=== PATIENT | female | born 1995 | race Hispanic/Latino ===

== ENCOUNTER 2018-08-13 16:07 | Observation (INO) | payer OTHER ==
[~2018-08-13] VITALS: Ht 157.5 cm; Wt 80.9 kg
[2018-08-14] MEDS ORDERED: ELIQUIS5 MG PO ×2 (10:15→12:50)
[2018-08-14] MEDS ORDERED: XARELTO15 MG PO (11:12)
[2018-08-14] MEDS ORDERED: XARELTO20 MG PO (11:12)
== END 2018-08-14 13:10 | disposition home or self-care (01) ==
LOC: ED 16:07 → MS 16:09
PROVIDERS: ADMIT Internal Medicine
DX: I26.99 Other pulmonary embolism without acute cor pulmonale (principal); N83.202 Unspecified ovarian cyst, left side; E87.6 Hypokalemia; Z23 Encounter for immunization
CPT/HCPCS: 36415; 71260; 74177; 76705; 76830; 76856; 80053; 81001; 81240; 81241; 83690; 83735; 83880; 84484; 84703; 85025; 85379; 85610; 85730; 86147; 87491; 87591; 94762; 96372; 96374; 96375; 99285-25; G0008; G0378; J1650; J1885; J2405; Q9967

== ENCOUNTER 2023-04-20 11:01 | Inpatient (IN) | payer BC, OTHER ==
[~2023-04-20] VITALS: Ht 160 cm; Wt 97.5 kg
--- OUTSIDE RECORDS SUMMARY | ~2023-04-20 | XMS | Continuity of Care Document ---
Demographics + + + | Address | [address] | | | [place] [address] | + + + | Preferred Language | Unknown | + + + | Marital Status | | + + + | Scientologist Affiliation | Unknown | + + + | Race | Unknown | + + + | Ethnic Group | or | + + + Author + + + | Author | [facility] | + + + | Organization | [facility] | + + + | Address | [address] | | | [place] [address] | + + + | Phone | | + + + Care Team Providers + + + + | Care Market Sales Manager Name | Role | Phone | + + + + Unavailable | Unavailable | + + + + Allergies No information. Encounters No information. Functional Status No information. Immunizations No information. Medications No information. Problems + + + + | date | description | facility | + + + + | 2023-01-29 22:23 | OTH RELATED | [facility] | | | CONDITIONS, SECOND | | | | [facility] | | + + + + | 2023-01-29 22:23 | PALPITATIONS | [facility] | + + + + | 2023-01-29 22:23 | WEEKS OF GESTATION OF | [facility] | | | NOT SPECIFIED | | + + + + | 2023-01-29 22:23 | OTHER CORRECTION (CURRENT) | [facility] | | | DRUG THERAPY | | + + + + | 2023-02-26 20:30 | SUPERVISION OF HIGH RISK | [facility] | | | , UNSP | | + + + + | 2023-02-26 20:30 | UNSPECIFIED MATERNAL | [facility] | | | HYPERTENSION, SECON | | + + + + | 2023-02-26 20:39 | SUPERVISION OF HIGH RISK | [facility] | | | , UNSP | | + + + + | 2023-02-26 20:39 | SUPERVISION OF HIGH RISK | [facility] | | | , UNSP, THIRD | | | | [facility] | | + + + + | 2023-02-26 20:39 | UNSPECIFIED MATERNAL | [facility] | | | HYPERTENSION, SECON | | + + + + | 2023-02-26 20:39 | UNSPECIFIED MATERNAL | [facility] | | | HYPERTENSION, THIRD | | | | TRIMESTER | | + + + + | 2023-02-26 20:39 | UTERINE SIZE-DATE | [facility] | | | DISCREPANCY, THIRD | | | | TRIMESTER | | + + + + | 2023-02-26 20:39 | MATERNAL CARE FOR EXCESS | [facility] | | | GROWTH, THIRD TRIME | | + + + + | 2023-02-26 20:39 | 33 WEEKS GESTATION OF | [facility] | | | | | + + + + | 2023-03-05 19:30 | SUPERVISION OF HIGH RISK | [facility] | | | , UNSP | | + + + + | 2023-03-05 19:30 | UNSPECIFIED MATERNAL | [facility] | | | HYPERTENSION, SECON | | + + + + | 2023-03-06 19:36 | SUPERVISION OF HIGH RISK | [facility] | | | , UNSP | | + + + + | 2023-03-06 19:36 | SUPERVISION OF HIGH RISK | [facility] | | | , UNSP, THIRD | | | | TRIMESTER | | + + + + | 2023-03-06 19:36 | UNSPECIFIED MATERNAL | [facility] | | | HYPERTENSION, SECON | | + + + + | 2023-03-06 19:36 | UNSPECIFIED MATERNAL | [facility] | | | HYPERTENSION, THIRD | | | | TRIMESTER | | + + + + | 2023-03-06 19:36 | 33 WEEKS GESTATION OF | [facility] | | | | | + + + + | 2023-03-17 13:05 | GIGIR SMITA ROSENTHAL OF | [facility] | | | NORMAL PREG, UNSP, THIRD | | | | [facility]IME[facility] | | + + + + | 2023-03-17 13:05 | 32 WEEKS GESTATION OF | [facility] | | | | | + + + + | 2023-03-17 13:05 | 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 Results/Labs No information. Social History +--------+ + + | date | description | facility | +--------+ + + Vital Signs No information."
[~2023-04-20 11:01] MED LIST: ELIQUIS5 MG PO; LEVOXYL25 MCG PO; XARELTO15 MG PO; XARELTO20 MG PO
[2023-04-20 13:00] LABS: HEMATOCRIT 39.7 % (35.0-50.0); HEMOGLOBIN 13.1 g/dL (12.0-18.0); MCH 26.3 (27-36); MCV 79.6 fl (81-99); RBC 4.98 M/ul (4.3-5.7); RDW 16.3 (10.5-15.0)
[2023-04-20 13:18] VITALS: BP 125/71
[2023-04-20 13:23] LABS: ANION GAP 16.6 (7-21); BUN/CREATININE RATIO 11.32 (6.0-28.6); CREATININE, SERUM 0.53 mg/dL (0.55-1.02); POTASSIUM 3.6 mmol/L (3.5-5.1)
[2023-04-20 13:37] LABS: ABO A; ANTIBODY SCREEN NEGATIVE; RH POSITIVE
[2023-04-20 14:12] LABS: AMPHETAMINES, UR NEGATIVE (NEGATIVE); BARBITURATES, UR NEGATIVE (NEGATIVE); BENZODIAZEPINES, UR NEGATIVE (NEGATIVE); BUPRENORPHINE,UR NEGATIVE (NEGATIVE); COCAINE, UR NEGATIVE (NEGATIVE); MARIJUANA (THC), UR NEGATIVE (NEGATIVE); MDMA, UR NEGATIVE (NEGATIVE); METHADONE, UR NEGATIVE (NEGATIVE); METHAMPHETAMINE, UR NEGATIVE (NEGATIVE); OPIATES, UR NEGATIVE (NEGATIVE); OXYCODONE, UR NEGATIVE (NEGATIVE); PHENCYCLIDINE, UR NEGATIVE (NEGATIVE); TRICYCLIC ANTIDEPRESSANT, UR NEGATIVE (NEGATIVE)
--- NOTE | 2023-04-20 15:46 | PR ---
[facility] [address] [place], [place] [address] Signed Progress Notes IP Datetime Report Generated by CPN: 04/20/2023 15:46 PROGRESS NOTES: [id number] Impression: Normal Progression of Labor Procedures: Scalp Electrode Plan: Continue Present Management Informed Consent Obtain: Vaginal Delivery VITAL SIGNS: [id number] Vital Signs: Reviewed; Within Normal Limits EXAM: [id number] Dilatation: 10.0 Effacement: 100 Station: 0 MEMBRANES: [id number] Comments: S: Patient well. S/P epidural and FSE placement. Resting comfortably in bed. No concerns or complaints at this time. O: AFVSS A/P: Patient well. 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 Will continue to monitor. Will recheck in 1 hour and sooner as needed. FETUS A: [id number] Variability: Moderate 6-25bpm Accelerations: None Decelerations: None FHR Category: Category I Presentation: Vertex FETUS B: [id number] Signing Physician: Dario Bills MD Copies: ~ *Electronically Signed* 04/20/23 1546 DARIO BILLS MD PATIENT NAME: YANIQUE HERNANDEZ PROGRESS NOTE DATE OF : [birth year] PHYSICIAN: DARIO BILLS MD RPT #: [id number] REPORT IS CONFIDENTIAL AND NOT TO BE RELEASED WITHOUT AUTHORIZATION
--- NOTE | 2023-04-20 15:49 | NUR ---
RT COLLECTED RAPID COVID 19, RSV, AND FLU SWAB PER DR REQUEST USING IN HOUSE LAB WITH NO COMPLICATIONS AT THIS TIME.
[2023-04-20 16:30] LABS: INFLUENZA B NAA NEGATIVE (NEGATIVE); RESPIRATORY SYNCYTIAL VIR NAA NEGATIVE (NEGATIVE)
[2023-04-21 05:22] LABS: HEMATOCRIT 37.8 % (35.0-50.0); HEMOGLOBIN 12.2 g/dL (12.0-18.0); MCH 26.2 (27-36); MCHC 32.4 g/dl (30-36); RBC 4.67 M/ul (4.3-5.7); RDW 16.3 (10.5-15.0)
--- NOTE | 2023-04-21 07:33 | PR ---
[facility] [address] [facility] [facility] [place], [place] [address] Signed PP Progress Notes Datetime Report Generated by CPN: 04/21/2023 07:33 SUBJECTIVE: [id number] Pain: Within Normal Limits Nausea/Vomiting: Denies Vital Signs: [id number] Vital Signs: Reviewed; Within Normal Limits Cardiovascular: Not Done Respiratory: Not Done Abdomen/Uterus: Abnormal Lochia: Normal Vulva/Perineum: Not Done Breasts: Not Done CVA Tenderness: Not Done Extremities: Normal Incision: Not Applicable Progress: Normal Exam Comments: Fundus firm, NT @ U-2. H/H 12.2/37.8, WBC 18.3, plat 188k IMPRESSION/PLAN/PROCEDURES: [id number] Impression: Normal Progression Plan: Discharge Procedures: None Progress Notes: Doing well. She desires D/C at 24 hrs. Signing Physician: Patrizia Ortiz MD Copies: ~ *Electronically Signed* 04/21/23 0733 PATRIZIA ORTIZ MD PATIENT NAME: YANIQUE HERNANDEZ PROGRESS NOTE DATE OF : [birth year] PHYSICIAN: PATRIZIA ORTIZ MD RPT #: [id number] REPORT IS CONFIDENTIAL AND NOT TO BE RELEASED WITHOUT AUTHORIZATION
== END 2023-04-21 17:55 | disposition home or self-care (01) | DRG 807 ==
LOC: FBCO 11:01 → FBC 12:34
PROVIDERS: ADMIT Obstetrics & Gynecology; ATTEND Obstetrics & Gynecology
PROC: 4A033R1 Measurement of Arterial Saturation, Peripheral, Percutaneous Approach (ICD-10-PCS; principal; 2023-04-20)
PROC: 4A1HXCZ Monitoring of Products of Conception, Cardiac Rate, External Approach (ICD-10-PCS; 2023-04-20)
PROC: 10E0XZZ Delivery of Products of Conception, External Approach (ICD-10-PCS; 2023-04-20)
PROC: 00HU33Z Insertion of Infusion Device into Spinal Canal, Percutaneous Approach (ICD-10-PCS; 2023-04-20)
PROC: 3E0R3BZ Introduction of Anesthetic Agent into Spinal Canal, Percutaneous Approach (ICD-10-PCS; 2023-04-20)
PROC: 3E033VJ Introduction of Other Hormone into Peripheral Vein, Percutaneous Approach (ICD-10-PCS; 2023-04-20)
DX: O80 Encounter for full-term uncomplicated delivery (principal); Z37.0 Single live birth; Z20.822 Contact with and (suspected) exposure to COVID-19; Z67.10 Type A blood, Rh positive; Z3A.37 37 weeks gestation of pregnancy; Z86.711 Personal history of pulmonary embolism; Z79.899 Other long term (current) drug therapy
CPT/HCPCS: 01960; 36415; 59025; 80048; 82803; 85027; 86850; 86900; 86901; 87502; A9270; C9803; J1650; J2590; J2795; J7121; U0002